=== PATIENT | female | born 1990 | race Caucasian/White ===

== ENCOUNTER 2024-11-16 11:21 | Outpatient (CLI) | payer OTHER | END 2024-11-16 12:00 | disposition home or self-care (01) | LOC: NST 11:21 | PROVIDERS: ATTEND Obstetrics & Gynecology Gynecology | DX: Z34.83 Encounter for supervision of other normal pregnancy, third trimester (principal) ==

== ENCOUNTER 2024-11-22 10:07 | Outpatient (CLI) | payer OTHER ==
[2024-11-23] MEDS ORDERED: PRENATABS RX T1 EACH PO (10:12)
== END 2024-11-22 12:04 | disposition home or self-care (01) ==
LOC: NST 10:07
PROVIDERS: ATTEND Obstetrics & Gynecology Maternal & Fetal Medicine
DX: Z34.83 Encounter for supervision of other normal pregnancy, third trimester (principal)

== ENCOUNTER 2024-11-23 08:58 | Inpatient (IN) | payer OTHER ==
[~2024-11-23] VITALS: Ht 157.5 cm; Wt 3.2 kg
[2024-11-23 09:48] VITALS: BP 128/73
[2024-11-23] MEDS ORDERED: OXYTOCIN 20 UNITS/500ML RL PIGGYBAG IV ONE (10:02)
[2024-11-23] MEDS ORDERED: PRENATABS RX T1 EACH PO (10:12)
[2024-11-23] MEDS ORDERED: OXYTOCIN 500 ML IV SCH (10:30)
[2024-11-23] MEDS ORDERED: RINGERS SOLUTION,LACTATED 1,000 ML IV SCH (10:30)
[2024-11-23 11:47] VITALS: BP 118/69
[2024-11-23 11:59] LABS: BASO % 0.2 % (0.1-1.2); EOS # 0.05 (0.04-0.54); EOS % 0.4 % (0.7-7.0); LYMPH # 2.03 (1.18-3.74); LYMPH % 15.7 % (19.3-53.1); MEAN PLATELET VOLUME 12.50 fl (9.4-12.4); MONO # 1.01 (0.24-0.82); MONO % 7.8 % (4.7-12.5); NEUT # 9.58 (1.56-6.13); NEUT % 74.0 % (34.0-71.1); RED CELL DISTRIBUTION WIDTH 14.4 % (11.6-14.4)
[2024-11-23 12:39] LABS: INR < 0.93
[2024-11-23 13:48] VITALS: BP 139/81
[2024-11-23] MEDS ORDERED: CHLORHEXIDINE GLUCONATE 120 ML BOTTLE TOP ONE (14:11)
[2024-11-23] MEDS ORDERED: ERYTHROMYCIN BASE OPHT 1GM EACH TUBE OP ONE ×2 (14:11→16:30)
[2024-11-23] MEDS ORDERED: OXYTOCIN 20 UNITS/1000ML RL PIGGYBAG IV ONE (14:11)
[2024-11-23] MEDS ORDERED: LIDOCAINE HCL 1% 10ML VIAL ONE (14:12)
[2024-11-23] MEDS ORDERED: MORPHINE SULFATE 2 MG/ML CARTRIDGE IV ONE (14:15)
[2024-11-23 15:41] VITALS: BP 147/74
[2024-11-23] MEDS ORDERED: OXYTOCIN 10 UNITS/ML VIAL ONE ×2 (16:30→21:54)
[2024-11-23] MEDS ORDERED: CEFAZOLIN SODIUM 1,000 MG VIAL ONE (17:07)
[2024-11-23] MEDS ORDERED: MORPHINE SULFATE 4 MG/ML VIAL IV ONE ×2 (20:15→22:00)
[2024-11-23 20:45] LABS: BASO % 0.1 % (0.1-1.2); EOS # 0.00 (0.04-0.54); EOS % 0.0 % (0.7-7.0); LYMPH # 0.86 (1.18-3.74); LYMPH % 4.2 % (19.3-53.1); MEAN PLATELET VOLUME 12.10 fl (9.4-12.4); MONO # 1.10 (0.24-0.82); MONO % 5.3 % (4.7-12.5); NEUT # 18.37 (1.56-6.13); NEUT % 89.2 % (34.0-71.1); RED CELL DISTRIBUTION WIDTH 14.2 % (11.6-14.4)
[2024-11-23] MEDS ORDERED: KETOROLAC TROMETHAMINE 30 MG VIAL ONE (20:53)
[2024-11-23] MEDS ORDERED: MORPHINE SULFATE 4 MG/ML VIAL IV SCH (21:19)
[2024-11-23] MEDS ORDERED: KETOROLAC TROMETHAMINE 30 MG VIAL IV SCH (21:19)
[2024-11-23] MEDS ORDERED: OXYTOCIN 1,000 ML IV ONE (21:30)
[2024-11-24 00:51] VITALS: BP 108/67
[2024-11-24 04:30] VITALS: BP 97/66
[2024-11-24] MEDS ORDERED: ACETAMINOPHEN 500 MG GEL..CAP PO SCH (06:00)
[2024-11-24 08:00] VITALS: BP 105/70
[2024-11-24] MEDS ORDERED: SIMETHICONE 125 MG CAPSULE PO SCH (09:00)
[2024-11-24] MEDS ORDERED: PNV,CALCIUM 72/IRON/FOLIC ACID 1 TAB TABLET PO SCH (09:00)
[2024-11-24] MEDS ORDERED: DOCUSATE SODIUM 100MG CAP PO SCH (09:00)
[2024-11-24] MEDS ORDERED: GABAPENTIN 300 MG CAPSULE PO SCH (09:00)
[2024-11-24] MEDS ORDERED: IRON FUM,PS/FOLIC/BCOMP,C NO.9 1 CAP CAPSULE PO SCH (09:00)
[2024-11-24 09:25] LABS: BASO % 0.1 % (0.1-1.2); EOS # 0.05 (0.04-0.54); EOS % 0.3 % (0.7-7.0); LYMPH # 1.56 (1.18-3.74); LYMPH % 10.0 % (19.3-53.1); MEAN PLATELET VOLUME 11.80 fl (9.4-12.4); MONO # 1.39 (0.24-0.82); MONO % 8.9 % (4.7-12.5); NEUT # 12.40 (1.56-6.13); NEUT % 79.4 % (34.0-71.1); RED CELL DISTRIBUTION WIDTH 14.3 % (11.6-14.4)
[2024-11-24] MEDS ORDERED: SOD FERRIC GLUC COMPLX/SUCROSE 62.5 MG/5 ML AMPUL IV SCH (18:23)
[2024-11-24 20:01] VITALS: BP 100/55; O2SAT 100
[2024-11-25 00:33] VITALS: BP 90/60
[2024-11-25 08:00] VITALS: BP 103/69
== END 2024-11-25 14:58 | disposition home or self-care (01) | DRG 788 ==
LOC: LDR 08:58 → OB/GYN 13:17
PROVIDERS: ADMIT Obstetrics & Gynecology Gynecology; ATTEND Obstetrics & Gynecology Gynecology
PROC: 4A1HXCZ Monitoring of Products of Conception, Cardiac Rate, External Approach (ICD-10-PCS; 2024-11-23)
PROC: 10D00Z1 Extraction of Products of Conception, Low, Open Approach (ICD-10-PCS; principal; 2024-11-23 15:50)
DX: O82 Encounter for cesarean delivery without indication (principal); O62.1 Secondary uterine inertia; Z3A.40 40 weeks gestation of pregnancy; Z37.0 Single live birth